=== PATIENT | male | born 2000 | race Caucasian/White ===

== ENCOUNTER → 2020-03-19 | Outpatient (REF) | payer OTHER ==
[2020-03-19 18:50] LABS: CHLAMYDIA DNA AMPLIFICATION NEGATIVE (NEGATIVE); GC DNA AMPLIFICATION NEGATIVE (NEGATIVE)
== END ==
LOC: M WUC 16:09
PROVIDERS: ATTEND Physician Assistant
DX: A74.9 Chlamydial infection, unspecified (principal)

== ENCOUNTER 2022-10-21 14:08 | Emergency (ER) | payer OTHER ==
[2022-10-21 20:46] VITALS: BP 138/72
== END 2022-10-21 20:48 | disposition home or self-care (01) ==
LOC: M ED 14:08
DX: F43.0 Acute stress reaction (principal)